=== PATIENT | female | born 1980 | race Caucasian/White ===

== ENCOUNTER 2020-06-25 12:17 | Inpatient (IN) ==
[2020-06-25] MEDS ORDERED: ALBUT/IPRATROP 3MG/0.5MG NEB 3 ML VIAL NEB STA (13:03)
[2020-06-25] MEDS ORDERED: methylPREDNISolone 125 MG/2 ML VIAL IV STA (13:03)
[2020-06-25 13:29] LABS: Basophils # (auto) 0.03 K/uL (0-0.2); Basophils % (auto) 0.5 %; Eosinophils # (auto) 0.66 K/uL (0-0.5); Eosinophils % (auto) 10.4 %; Hematocrit (blood only) 42.3 % (37-47); Hemoglobin 14.3 g/dL (12.0-16.0); Immature Granulocytes # (auto) 0.01 K/uL (0.00-0.02); Immature Granulocytes % (auto) 0.2 %; Lymphocytes # (auto) 1.94 K/uL (1.2-3.4); Lymphocytes % (auto) 30.6 %; Mean Corpuscular Hemoglobin 29.4 pg (25-34); Mean Corpuscular Hgb Conc 33.8 g/dL (32-36); Mean Platelet Volume 10.3 fL (7.4-10.4); Monocytes # (auto) 0.52 K/uL (0.11-0.59); Monocytes % (auto) 8.2 %; Neutrophils # (auto) 3.19 K/uL (1.4-6.5); Neutrophils % (auto) 50.1 %; Platelet Count 356 K/uL (130-400); RDW Coefficient of Variation 13.9 % (11.5-14.5); Red Blood Count 4.86 M/uL (4.2-5.4); White Blood Count 6.35 K/uL (4.8-10.8)
[2020-06-25 13:40] LABS: D Dimer < 190 ug/L FEU (0-500)
[2020-06-25 13:45] LABS: Albumin Level 4.2 gm/dl (3.4-5.0); BUN Creatinine Ratio 10.5 (10-20); Calcium 9.8 mg/dl (8.5-10.1); Creatinine Clr Calc Pharmacy 62.4 ml/min; Est GFR (African American) 97.3; Est GFR (Non-African American) 83.9; Potassium 3.9 mmol/L (3.5-5.1)
[2020-06-25 13:48] LABS: Albumin Globulin Ratio 0.9 (0.9-2); Bilirubin,Total 0.5 mg/dl (0.2-1); Globulin 4.5 gm/dl (2.5-4.0); Total Protein 8.7 gm/dl (6.4-8.2)
[2020-06-25] MEDS ORDERED: ALBUTEROL HFA 8 GM INHALER INH ONE (14:26)
--- NOTE | 2020-06-25 14:28 | XRay Report ---
XR chest 1V portable HISTORY: dyspnea COMPARISON: None. FINDINGS: No focal lung consolidations to suggest pneumonia. The heart is normal in size. No pleural effusions. No pneumothorax. Mild S-shaped scoliosis of the thoracolumbar spine. IMPRESSION: No acute process. ACT 112: Negative or not required by law. Electronically signed by: Jimbo Nash M.D. 06/25/2020 2:27 PM
--- NOTE | 2020-06-25 15:38 | Emergency Department Note ---
History of Present Illness General Chief complaint: Asthma Stated complaint: ASTHMA ATTACK Time Seen by Provider: 06/25/20 12:24 Source: patient and RN notes reviewed Mode of arrival: ambulatory Limitations: no limitations History of Present Illness Provider complaint: Asthma exacerbation This patient is a 40-year-old female who presents to the emergency department with complaints of shortness of breath that has been increasing over the last 24 hours. Patient states she primarily resides in [place] but has been here for about 1 week staying at her childhood home. She has misplaced her Symbicort inhaler and has been using her albuterol quite frequently. Patient states she had a terrible night last night of wheezing or coughing and could not get comfortable. She began to feel tingling in her feet after "several showers" to open up her lungs. Patient states she does have a history of smoking but has not smoked in several years. She denies any significant covert exposures and states she essentially has been staying to herself. Home Medications Home Medications Medication Instructions Recorded Confirmed Type albuterol 90 mcg INHALATION DAILY 06/25/20 06/25/20 History budesonide-formoterol [Symbicort] 2 inh INHALATION BID #10.2 g 06/25/20 Rx duloxetine [Cymbalta] 60 mg PO DAILY 06/25/20 06/25/20 History fexofenadine-pseudoephedrine 1 tab PO DAILY PRN 06/25/20 06/25/20 History [Claudette-D 24 Hour] montelukast 10 mg PO DAILY 06/25/20 06/25/20 History prednisone See Rx Instructions .ROUTE 06/25/20 Rx .COMPLEX #31 tab Allergies Allergy/AdvReac Type Severity Reaction Status Date / Time Penicillins Allergy Unknown Unverified 06/25/20 13:50 Sulfa (Sulfonamide Allergy Unknown Unverified 06/25/20 13:50 Antibiotics) Past Med/Surg History Medical History Asthma History of smoking Social History Smoking Status: Former smoker Tobacco Type: Cigarettes Preferred Language: Tuvaluan Feels Safe at Home: Yes Review of Systems See HPI for pertinent positives & negatives. and A total of 10 systems reviewed and were otherwise negative Physical Exam Vital Signs Vital Signs - 24 hr 06/25/20 12:18 06/25/20 13:04 06/25/20 13:14 Temperature 36.6 C Temperature Source Oral Oral Pulse Rate 76 85 Pulse Rate [Apical] Pulse Rate from SpO2 Sensor Pulse Rhythm Regular Pulse Strength Normal Respiratory Rate 20 21 Respiratory Effort / Characteristics Non-Labored Spontaneous Respiratory Depth Normal Respiratory Pattern Regular Blood Pressure 113/74 Blood Pressure Mean 87 Blood Pressure Position Sitting Pulse Oximetry 91 Oxygen Delivery Method Room Air Room Air Oxygen Flow Rate Sepsis Recent Fever Within 48 Hours No Sepsis New/Unexplained Change in Mental Status N/A Sepsis Action Taken by Nursing No Action Required 06/25/20 13:19 06/25/20 13:20 06/25/20 13:30 Temperature Temperature Source Pulse Rate 81 79 80 Pulse Rate [Apical] Pulse Rate from SpO2 Sensor 81 80 84 Pulse Rhythm Pulse Strength Respiratory Rate 17 21 22 Respiratory Effort / Characteristics Respiratory Depth Respiratory Pattern Blood Pressure 109/84 111/83 Blood Pressure Mean 101 90 Blood Pressure Position Pulse Oximetry 92 94 94 Oxygen Delivery Method Oxygen Flow Rate Sepsis Recent Fever Within 48 Hours Sepsis New/Unexplained Change in Mental Status Sepsis Action Taken by Nursing 06/25/20 13:31 06/25/20 13:40 06/25/20 13:50 Temperature Temperature Source Pulse Rate 77 83 93 H Pulse Rate [Apical] 75 Pulse Rate from SpO2 Sensor 72 82 92 H Pulse Rhythm Pulse Strength Respiratory Rate 16 18 Respiratory Effort / Characteristics Spontaneous Short of Breath Respiratory Depth Respiratory Pattern Blood Pressure Blood Pressure Mean Blood Pressure Position Pulse Oximetry 97 99 100 Oxygen Delivery Method Room Air Oxygen Flow Rate Sepsis Recent Fever Within 48 Hours Sepsis New/Unexplained Change in Mental Status Sepsis Action Taken by Nursing 06/25/20 14:00 06/25/20 14:01 06/25/20 14:10 Temperature Temperature Source Pulse Rate 85 97 H 102 H Pulse Rate [Apical] Pulse Rate from SpO2 Sensor 92 H 96 H Pulse Rhythm Pulse Strength Respiratory Rate 22 23 Respiratory Effort / Characteristics Respiratory Depth Respiratory Pattern Blood Pressure 111/82 Blood Pressure Mean 86 Blood Pressure Position Pulse Oximetry 100 100 Oxygen Delivery Method Oxygen Flow Rate Sepsis Recent Fever Within 48 Hours Sepsis New/Unexplained Change in Mental Status Sepsis Action Taken by Nursing 06/25/20 15:00 06/25/20 15:10 06/25/20 15:14 Temperature Temperature Source Pulse Rate 108 H 120 H Pulse Rate [Apical] Pulse Rate from SpO2 Sensor 117 H Pulse Rhythm Pulse Strength Respiratory Rate 23 24 Respiratory Effort / Characteristics Respiratory Depth Respiratory Pattern Blood Pressure 130/80 Blood Pressure Mean 98 Blood Pressure Position Pulse Oximetry 89 L 87 L Oxygen Delivery Method Room Air Oxygen Flow Rate Sepsis Recent Fever Within 48 Hours Sepsis New/Unexplained Change in Mental Status Sepsis Action Taken by Nursing 06/25/20 15:18 Temperature Temperature Source Pulse Rate Pulse Rate [Apical] Pulse Rate from SpO2 Sensor Pulse Rhythm Pulse Strength Respiratory Rate Respiratory Effort / Characteristics Respiratory Depth Respiratory Pattern Blood Pressure Blood Pressure Mean Blood Pressure Position Pulse Oximetry 90 Oxygen Delivery Method Nasal Cannula Oxygen Flow Rate 3 Sepsis Recent Fever Within 48 Hours Sepsis New/Unexplained Change in Mental Status Sepsis Action Taken by Nursing Vital signs reviewed. General: Well-appearing 40 yo female, no significant distress. HEENT: No scleral icterus, PERRLA, neck supple. Atraumatic. Cardiovascular: Regular rate and rhythm, no extra sounds. Pulmonary: Wheezing throughout the lung sellers bilaterally, slightly increased work of breathing but oxygenating on room air. Abdomen: Soft, nontender, nondistended, positive bowel sounds. Musculoskeletal: Atraumatic, no peripheral edema. Neurologic: Patient awake alert and oriented x 3 Skin: Warm, dry, no rash Course Administered Medications Discontinued Medications Albuterol (Albut/Ipratrop 3mg/0.5mg Neb 3 Ml Vial) 12 ml NEB ONE STA Stop: 06/25/20 13:04 Last Admin: 06/25/20 13:27 Dose: 12 ml Documented by: [id number] Albuterol (Albuterol Hfa 8 Gm Inhaler) 2 puffs INH NOW ONE Stop: 06/25/20 14:27 Last Admin: 06/25/20 15:19 Dose: Not Given Documented by: [id number] Methylprednisolone (Methylprednisolone 125 Mg/2 Ml Vial) 60 mg IV NOW STA Stop: 06/25/20 13:04 Last Admin: 06/25/20 13:17 Dose: 60 mg Documented by: [id number] Medical Decision Making Differential Diagnosis Differential diagnosis: Etiologies such as infections, reactive airway disease, COPD, pneumonia, pleural effusion, pulmonary edema, ARDS, pneumothorax, CHF, cardiac ischemia, cardiac t amponade, dysrhythmia, anemia, pulmonary embolism, musculoskeletal, gastrointestinal process, as well as others were entertained. Medical Records Attestation: I reviewed the patient's medical records. Home Medications Current Medication List: was personally reviewed by me Laboratory Data Attestation: I reviewed the patient's lab results. Result diagrams: 06/25/20 13:15 06/25/20 13:15 Lab Results 06/25/20 06/25/20 06/25/20 Range/Units 13:15 13:15 13:15 WBC 6.35 (4.8-10.8) K/uL RBC 4.86 (4.2-5.4) M/uL Hgb 14.3 (12.0-16.0) g/dL Hct 42.3 (37-47) % MCV 87.0 (80-100) fL MCH 29.4 (25-34) pg MCHC 33.8 (32-36) g/dL RDW Std Deviation 44.0 (36.4-46.3) fL RDW Coeff of Tomasz 13.9 (11.5-14.5) % Plt Count 356 (130-400) K/uL MPV 10.3 (7.4-10.4) fL Immature Gran % (Auto) 0.2 % Neut % (Auto) 50.1 % Lymph % (Auto) 30.6 % Hayes % (Auto) 8.2 % Eos % (Auto) 10.4 % Baso % (Auto) 0.5 % Neut # (Auto) 3.19 (1.4-6.5) K/uL Lymph # (Auto) 1.94 (1.2-3.4) K/uL Hayes # (Auto) 0.52 (0.11-0.59) K/uL Eos # (Auto) 0.66 H (0-0.5) K/uL Baso # (Auto) 0.03 (0-0.2) K/uL Immature Gran # (Auto) 0.01 (0.00-0.02) K/uL D-Dimer < 190 (0-500) ug/L FEU Sodium 138 (136-145) mmol/L Potassium 3.9 (3.5-5.1) mmol/L Chloride 104 (98-107) mmol/L Carbon Dioxide 25 (21-32) mmol/L Anion Gap 9.0 (3-11) BUN 9 (7-18) mg/dl Creatinine 0.87 (0.6-1.2) mg/dl Est Cr Clr Drug Dosing 62.4 ml/min Est GFR ( Amer) 97.3 Est GFR (Non-Af Amer) 83.9 BUN/Creatinine Ratio 10.5 (10-20) Glucose 84 (70-99) mg/dl Calcium 9.8 (8.5-10.1) mg/dl Total Bilirubin 0.5 (0.2-1) mg/dl AST 20 (15-37) U/L ALT 21 (12-78) U/L Alkaline Phosphatase 84 (45-117) U/L Total Protein 8.7 H (6.4-8.2) gm/dl Albumin 4.2 (3.4-5.0) gm/dl Globulin 4.5 H (2.5-4.0) gm/dl Albumin/Globulin Ratio 0.9 (0.9-2) Imaging Data Attestation: I personally reviewed and interpreted this imaging study as follows: Radiologist's Impression: XR chest 1V portable HISTORY: dyspnea COMPARISON: None. FINDINGS: No focal lung consolidations to suggest pneumonia. The heart is normal in size. No pleural effusions. No pneumothorax. Mild S-shaped scoliosis of the thoracolumbar spine. IMPRESSION: No acute process. ACT 112: Negative or not required by law. Electronically signed by: Jimbo Nash M.D. 06/25/2020 2:27 PM Dictated: 06/25/20 1425 Transcribed: 06/25/20 1425 Blood Pressure Blood Pressure Findings: Normal blood pressure Blood Pressure Disposition: did not require urgent referral MDM Narrative This patient was evaluated and appeared to be in no significant distress. Patient's lung sounds are concerning for wheezing bilaterally. She does have a slightly increased work of breathing. Chest x-ray was performed and is negative for pulmonary infiltrate. Laboratory work reveals a negative d-dimer. Patient was given 60 mg of IV Solu-Medrol and an hour-long DuoNeb treatment. She was observed in the emergency department and reevaluated several times. Her work of breathing seemed to remain stable however wheezing was significant. Patient had likely a secondary hypoxia to 86% on room air after the nebulizer treatment. She was placed on nasal cannula oxygen. Given her continued increased work of breathing and hypoxia, the hospitalist will evaluate the patient for further management. She will likely require more aggressive steroid and nebulizer adm inistration. Patient is aware of the plan and agrees. Impression & Plan Asthma with acute exacerbation Discharge Plan Visit Data Chief Complaint: Asthma Stated Complaint: ASTHMA ATTACK ED Provider: Alla Auguste Discharge Problem: Asthma with acute exacerbation Patient Disposition: Home - Self-Care Condition: Good Discharge Instructions Urmila/Other Patient Handouts: Acute Severe Asthma Activity Restrictions/Additional Instructions: Diagnosis: Acute asthma exacerbation Prednisone 40 mg daily for 4 days, 30 mg daily for 3 days, 20 mg daily for 2 days, 10 mg daily for 2 days. Start tomorrow. Albuterol 2 puffs every 4 hours as needed for wheezing or cough. Continue your medications as prescribed. Follow-up with your physician upon return home. Return to the emergency department immediately for worsening of symptoms or any medical concerns. Forms Stand Alone Forms: [facility], [facility] Emergency Department, Important Visit Information Prescriptions Prescriptions: New budesonide-formoterol [Symbicort] 160-4.5 mcg/actuation HFA aerosol inhaler 2 inh inhalation BID Qty: 10.2 RF: 0 prednisone 10 mg tablet See Rx Instructions .ROUTE .COMPLEX Qty: 31 RF: 0 No Action montelukast 10 mg Tablet 10 mg PO DAILY RF: 0 albuterol 90 mcg/actuation Aerosol 90 mcg INHALATION DAILY RF: 0 duloxetine [Cymbalta] 60 mg Capsule,Delayed Release(Dr/Ec) 60 mg PO DAILY RF: 0 Claudette-D 24 Hour 180-240 mg Tablet Extended Release 24 Hr 1 tab PO DAILY PRN (Reason: Allergy Symptoms) RF: 0 Referrals Referrals: PCP,NO [Primary Care Provider] -
--- NOTE | 2020-06-25 16:32 | History & Physical Report ---
Date of Service June 25, 2020 Assessment & Plan (1) Asthma with acute exacerbation: Secondary to not using her Symbicort Duonebs QID + PRN Switch Symbicort to Breo Ellipta per hospital formulary Solu-Medrol 40mg IV BID Recommend discussing with her hosting engineer a rescue prednisone pack to avoid ER visits in the future. 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 Consider colchicine to reduce recurrent prednisone dosing. (4) Seasonal allergies: Claudette 180 mg p.o. daily. Montelukast 10 mg p.o. daily. No significant sinus disease to warrant pseudoephedrine and recommend she starts weaning off this. Admission and Anticipated Discharge Date Admission Date: June 25, 2020 History of Present Illness Chief Complaint: Shortness of breath Primary Care Provider: NO PCP Yolanda Granado is a 40-year-old female with past medical history of asthma who presents to the ER with shortness of breath. She notes progressive worsening shortness of breath becoming more labored over the past week. Especially worse over the last 2 days. Using her albuterol regularly and initially was helping but today was not making much difference. Associated chest tightness and nonproductive cough. No fevers, chills, abdominal pain, loss of taste or smell. No known COVID-19 exposure. She splits her time between [place], [place] where she has her outpatient care and [place], [place]. Unfortunately she left her Symbicort inhaler down in [place] therefore has not been taking this for the past 2 weeks. She reports poor compliance with her inhalers generally. In addition she is spent a lot of time outside and feels her allergies may have brought on this asthma exacerbation. This is her second exacerbation this year, last time in November was secondary to a viral illness. Usually she does not require hospitalization but comes to the ER for nebulizers and IV steroids and is able to be discharged. In the ER she was given an hour-long nebulizer, Solu-Medrol 60 mg IV with significant improvement in her chest tightness. Allergies Allergy/AdvReac Type Severity Reaction Status Date / Time Penicillins Allergy Unknown Unverified 06/25/20 13:50 Sulfa (Sulfonamide Allergy Unknown Unverified 06/25/20 13:50 Antibiotics) Home Medications Home Medications Medication Instructions Recorded Confirmed Type albuterol 90 mcg INHALATION DAILY 06/25/20 06/25/20 History budesonide-formoterol [Symbicort] 2 inh INHALATION BID #10.2 g 06/25/20 Rx duloxetine [Cymbalta] 60 mg PO DAILY 06/25/20 06/25/20 History fexofenadine-pseudoephedrine 1 tab PO DAILY PRN 06/25/20 06/25/20 History [Claudette-D 24 Hour] montelukast 10 mg PO DAILY 06/25/20 06/25/20 History prednisone See Rx Instructions .ROUTE 06/25/20 Rx .COMPLEX #31 tab Past Med/Surg History Medical History Asthma Behcet recurrent disease History of smoking Seasonal allergies Social History Smoking Status: Former smoker Tobacco Type: Cigarettes Second Hand Exposure: No; Do You Dip or Chew Tobacco: No; Tobacco Cessation Education Requested by Patient: No Hx Alcohol Use: Yes Alcohol type: wine Preferred Language: Estonian Communication Ability: Effective Electroless Plater Required: No Beliefs That Will Affect Care: None Current Living Situation: Significant Other Other Information That Helps Us Care for You: No Feels Safe at Home: Yes Safety Concerns: Feels Safe At This Time Review of Systems Review of Systems: All systems reviewed & are unremarkable except as noted in HPI & below 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 Physical Exam Constitutional: WD/WN, vitals as above Eyes: + anicteric sclerae; normal pupil size ENMT: external ear and nose normal, oropharynx normal Neck: trachea midline, no thyromegaly Respiratory: normal respiratory effort, + cough (Nonproductive) and able to speak in complete sentences; no respiratory distress, no labored breathing, no retractions and does not use accessory muscles Auscultation: + breath sounds absent (Bibasilar expiratory), + diminished lung sounds (Expiratory throughout) and + wheezes (Inspiratory) Cardiovascular: Rate/Rhythm: regular rhythm and + tachycardic Heart Sounds: no murmur Extremities: normal capillary refill; no pedal edema Gastrointestinal (Abdomen): normal bowel sounds, soft, nontender, no hepatosplenomegaly Musculoskeletal: no cyanosis or clubbing, extremities motor strength 5/5 Skin: no rashes, warm and dry Neurologic: moves all extremities and awake; not confused Psychiatric: A+Ox3, euthymic affect Lymphatic: no cervical or axillary lymphadenopathy Results & Data Results & Data ([facility]) Vital Signs (Past 12 Hours) Vital Signs Temp Pulse Pulse Resp BP Pulse Ox 06/25/20 15:25 93 06/25/20 15:18 90 06/25/20 15:14 87 L 06/25/20 15:10 120 H 24 89 L 06/25/20 15:00 108 H 23 130/80 06/25/20 14:10 102 H 06/25/20 14:01 97 H 23 100 06/25/20 14:00 85 22 111/82 100 06/25/20 13:50 93 H 18 100 06/25/20 13:40 83 99 06/25/20 13:31 77 75 16 97 06/25/20 13:30 80 22 111/83 94 06/25/20 13:20 79 21 94 06/25/20 13:19 81 17 109/84 92 06/25/20 13:14 85 21 06/25/20 12:18 36.6 C 76 20 113/74 91 Diagnostic Findings XR chest 1V portable IMPRESSION: No acute process. ECG Indication: tachycardia Rate (beats per minute): 93 Rhythm: sinus tachycardia and sinus with SA Findings: no acute ischemic change Comparison ECG Date: no prior available Code Status & VTE Plan Code Status Full VTE Prophylaxis Plan VTE Prophylaxis will be ordered: No Reason for no VTE drug order: Treatment not indicated Reason for no VTE mechanical prophylaxis: Treatment not indicated PG Care Time/CCT Total # of Minutes Spent Total Time Spent with Patient: Total time spent is greater than 50% in coordination of care (as documented) at patient's floor/unit and/or counseling patient: Coding Level of Care Code 89824 Initial Inpt Care Lvl 2 Diagnoses Asthma with acute exacerbation J45.901 Hypoxia R09.02 Behcet recurrent disease M35.2 Seasonal allergies J30.2
[2020-06-25] MEDS ORDERED: ONDANSETRON INJ 2 MG/ML 2 ML VIAL IV PRN (18:08)
[2020-06-25] MEDS ORDERED: POLYETHYLENE (MIRALAX) 17 GM PACK PO PRN (18:08)
[2020-06-25] MEDS ORDERED: ACETAMINOPHEN 325 MG TAB PO PRN (18:08)
[2020-06-25] MEDS: ALBUT/IPRATROP 3MG/0.5MG NEB 3 ML VIAL NEB SCH (19:48)
[2020-06-26] MEDS: ALBUT/IPRATROP 3MG/0.5MG NEB 3 ML VIAL NEB SCH ×5 (07:31→23:21)
--- NOTE | 2020-06-26 07:40 | Hospitalist Progress Note ---
Date of Service June 26, 2020 Assessment & Plan (1) Hypoxia: Patient's hypoxia is persistent and profound seemingly out of proportion. Her chest x-ray looks more like hyperinflation consistent with air trapping from COPD. She does have some smoking and vaping history. She has no knowledge of other family emergency with premature COPD and does not recall ever having an alpha-1 antitrypsin test (2) Asthma with acute exacerbation: Patient feels this is most likely secondary to not using her Symbicort she forgot it when she traveled from [place] to [place]. Duonebs QID + PRN Switch Symbicort to Breo Ellipta per hospital formulary Solu-Medrol 40mg IV BID Recommend discussing with her underwriting analyst a rescue prednisone pack to avoid ER visits in the future. 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 Consider colchicine to reduce recurrent prednisone dosing. (4) Seasonal allergies: Claudette 180 mg p.o. daily. Montelukast 10 mg p.o. daily. Admission and Anticipated Discharge Date Admission Date: June 25, 2020 Subjective Patient is very anxious she does not feel short of breath despite her persistent hypoxia. She says she was hypoxic once before when she was ill but they thought it was just from an acute illness he has a nonproductive cough she is in no chest pain or pressure Review of Systems Review of Systems: Mild distress and fatigue no headache, blurry or double vision no speech or swallowing issues no chest pain, pressure or palpitations no shortness of breath, intermittent nonproductive cough and sporadic wheezes no abdominal pain, nausea or vomiting, diarrhea or constipation no dysuria, hematuria or frequency no focal joint pain or swelling no back pain, CVA tenderness or radicular pain no bruising, bleeding or rashes no focal signs of weakness or numbness or altered sensation no complaints or anxiety or depression. Physical Exam Physical Exam: The patient appeared thin and petite in no acute distress Vital signs as documented. Head exam is normocephalic atraumatic no scleral icterus Neck is without JVD, thyromegaly, or carotid bruits. Lungs are clear to auscultation, poor air movement throughout occasional scant wheezes at the upper lobes Cardiac exam, Rhythm is regular.. No murmurs, rubs or gallops. Abdominal exam reveals normal bowel sounds, soft non tender, no masses Extremities are nonedematous and both pedal pulses are normal. Neurologic exam is alert and oriented, no focal loss of strength or sensation Skin is without bruises or rashes Psychologically is without concerns for anxiety or depression. Results & Data Results & Data ([facility]) Vital Signs (Past 12 Hours) Vital Signs Temp Pulse Pulse Resp BP Pulse Ox 06/26/20 07:31 59 L 16 97 06/26/20 07:18 72 93 06/26/20 07:14 88 L 06/26/20 07:05 97.7 F 75 20 112/61 92 06/25/20 23:00 97.3 F L 74 18 99/63 L 95 06/25/20 19:49 48 L 18 93 PG Care Time/CCT Total # of Minutes Spent Total Time Spent with Patient: Total time spent is greater than 50% in coordination of care (as documented) at patient's floor/unit and/or counseling patient: Coding Level of Care Code 22881 Subseq Hosp Care Lvl 3 Diagnoses Hypoxia R09.02 Asthma with acute exacerbation J45.901 Behcet recurrent disease M35.2 Seasonal allergies J30.2
[2020-06-26] MEDS: FLUTICASONE/VILANTEROL 200/25MCG 14 PUFFS/INHALER INH SCH (08:50)
[2020-06-26] MEDS: methylPREDNISolone 40 MG in SYRINGE 0 ML IV SCH ×2 (08:50→22:03)
[2020-06-26] MEDS: MONTELUKAST SODIUM 10 MG TABLET PO SCH (08:51)
[2020-06-26] MEDS: DULOXETINE HCL 60 MG CAP PO SCH (08:51)
[2020-06-26] MEDS ORDERED: PNEUMOCOCCAL ADMINISTRATION CHARGE ONE (09:00)
[2020-06-26] MEDS ORDERED: PNEUMOCOCCAL POLYSACCHARIDES 25 MCG/0.5 ML VIAL/SYR IM ONE (09:00)
[2020-06-26] MEDS: guaiFENesin 600 MG TABCR PO SCH ×2 (09:03→22:01)
[2020-06-26] MEDS: FEXOFENADINE HCL 180 MG TAB PO SCH (09:03)
--- NOTE | 2020-06-26 09:20 | Electrocardiogram Report ---
Test Reason : Blood Pressure : / mmHG Vent. Rate : 093 BPM Atrial Rate : 093 BPM P-R Int : 120 ms QRS Dur : 084 ms QT Int : 378 ms P-R-T Axes : 081 082 012 degrees QTc Int : 469 ms Left atrial rhythm with sinus arrhythmia Otherwise Normal ECG No previous ECGs available Confirmed by Otilio Cordero ([id number]) on 06/26/2020 9:19:56 AM Referred By: REFERRED SELF Confirmed By:Otilio Cordero
--- NOTE | 2020-06-26 10:05 | CT Scan Report ---
CT chest wo con CT DOSE: 257.64 mGycm CLINICAL HISTORY: 40 years-old Female with eval for hypoxic respiratory failure. Acute cough with sh ortness of breath TECHNIQUE: Multiaxial CT images of the chest were performed without contrast. A dose lowering techni que was utilized adhering to the principles of ALARA. COMPARISON: Chest radiograph 06/25/2020 FINDINGS: No large thyroid nodule. 9 mm precarinal lymph node, likely reactive. No pathologically enlarged lymp h nodes. Heart is normal in size. No pericardial effusion. No thoracic aortic aneurysm. No pneumothor ax or pleural effusion. Larger hyperinflated with diaphragmatic flattening. Mild to moderate bilatera l mucus plugging. Mild biapical pleural-parenchymal scarring. Mild patchy bibasilar and midlung predo minant groundglass opacities. No overt pulmonary edema, suspicious pulmonary nodule or mass. There is no acute process of the imaged upper abdomen. Soft tissues are unremarkable. Bones appear in tact. Scoliosis of the upper to mid thoracic spine. No acute fracture or suspicious bone lesion. IMPRESSION: 1. Bilateral multifocal mucus plugging with patchy intermixed groundglass densities suggestive of pro bable atelectasis. An atypical pneumonitis could appear similarly. 2. No adenopathy, pleural effusion or lobar airspace consolidation. 3. Thoracic levoscoliosis. ACT 112: Positive. There are findings on this exam that require communication between the performing entity and the patient following Patient Test Result Information Act ([place] Act 112) guidelines. Electronically signed by: Tyler Swann M.D. 06/26/2020 10:04 AM
[2020-06-26] MEDS ORDERED: AZITHROMYCIN 250 MG TAB PO ONE (11:52)
[2020-06-26 14:09] LABS: Adenovirus PCR Not Detected (NotDetected); Bordetella parapertussis PCR Not Detected (NotDetected); Bordetella pertussis PCR Not Detected (NotDetected); Chlamydia pneumoniae PCR Not Detected (NotDetected); Coronavirus 229E PCR Not Detected (NotDetected); Coronavirus CoV-2 (COVID19)PCR Not Detected (NotDetected); Coronavirus HKU1 PCR Not Detected (NotDetected); Coronavirus NL63 PCR Not Detected (NotDetected); Coronavirus OC43PCR Not Detected (NotDetected); Human Metapneumovirus PCR Not Detected (NotDetected); Influenza A PCR Not Detected (NotDetected); Influenza B PCR Not Detected (NotDetected); Mycoplasma pneumoniae PCR Not Detected (NotDetected); Parainfluenza Virus 1 PCR Not Detected (NotDetected); Parainfluenza Virus 2 PCR Not Detected (NotDetected); Parainfluenza Virus 3 PCR Not Detected (NotDetected); Parainfluenza Virus 4 PCR Not Detected (NotDetected); Respiratory Syncytial VirusPCR Not Detected (NotDetected); Rhinovirus/Enterovirus PCR Not Detected (NotDetected)
[2020-06-26] MEDS ORDERED: LORazepam 0.5 MG TAB PO PRN (23:15)
[2020-06-27] MEDS ORDERED: COUGH DROP (SUGAR FREE) LOZ 24 LOZ/1 BOX BUCCAL ONE (04:55)
[2020-06-27] MEDS: ALBUT/IPRATROP 3MG/0.5MG NEB 3 ML VIAL NEB SCH ×3 (07:15→15:06)
--- NOTE | 2020-06-27 08:27 | Discharge Summary ---
Date of Service June 27, 2020 Admission HPI Per Admitting Provider Yolanda Granado is a 40-year-old female with past medical history of asthma who presents to the ER with shortness of breath. She notes progressive worsening shortness of breath becoming more labored over the past week. Especially worse over the last 2 days. Using her albuterol regularly and initially was helping but today was not making much difference. Associated chest tightness and nonproductive cough. No fevers, chills, abdominal pain, loss of taste or smell. No known COVID-19 exposure. She splits her time between [place], [place] where she has her outpatient care and [place], [place]. Unfortunately she left her Symbicort inhaler down in [place] therefore has not been taking this for the past 2 weeks. She reports poor compliance with her inhalers generally. In addition she is spent a lot of time outside and feels her allergies may have brought on this asthma exacerbation. This is her second exacerbation this year, last time in November was secondary to a viral illness. Usually she does not require hospitalization but comes to the ER for nebulizers and IV steroids and is able to be discharged. In the ER she was given an hour-long nebulizer, Solu-Medrol 60 mg IV with significant improvement in her chest tightness. Principal Diagnosis acute hypoxic respiratory failure bronchiolitis asthma Discharge Exam The patient appeared with minimal respiratory distress Vital signs as documented. Lungs are clear with overall poor air movement no wheezes Cardiac exam, Rhythm is regular. She becomes tachycardic when she is hypoxic,. No murmurs, rubs or gallops. Abdominal exam reveals normal bowel sounds, soft non tender, no masses Extremities are nonedematous and both pedal pulses are normal. Neurologic exam is alert and oriented, no focal loss of strength or sensation Skin is without bruises or rashes Psychologically is with concerns for anxiety . Discharge Data Allergies Allergy/AdvReac Type Severity Reaction Status Date / Time Penicillins Allergy Unknown Unverified 06/25/20 13:50 Sulfa (Sulfonamide Allergy Unknown Unverified 06/25/20 13:50 Antibiotics) Ordered Studies 06/26/20 08:01 CT chest wo con Routine Hospital Course (1) Hypoxia: Patient's hypoxia is persistent and profound for her age. Echocardiogram did not reveal any valvular heart disease or concerns for septal defects. Her chest x-ray looks more like hyperinflation consistent with air trapping from COPD. She does have some smoking and vaping history. She has no knowledge of other family members with premature COPD and does not recall ever having an alpha-1 antitrypsin test. Given the fact that she is trying to contain her cost [id number] we did recommend other additional testing be performed in her primary care office including alpha-1 antitrypsin testing IgE levels. Her initial d-dimer was normal so her CT scan was done without contrast (2) Asthma with acute exacerbation: Patient feels this is most likely secondary to not using her Symbicort she forgot it when she traveled from [place] to [place]. 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 Consider colchicine to reduce recurrent prednisone dosing. (4) Seasonal allergies: Claudette 180 mg p.o. daily. Montelukast 10 mg p.o. daily. (5) Underweight: Patient is underweight with a BMI of 17 Total Time Total Time Spent Total Time Spent (In Minutes): It required greater than 30 minutes to prepare this patient for discharge Discharge Plan Discharge Items Patient Disposition: Home - Self-Care Reason For Visit: ASTHMA EXACERBATION Discharge Diagnosis: acute hypoxic respiratory failure bronchiolitis Condition on Discharge: Good Activity: Per Instructions section Activity Comment: no intentional exercise until you see follow up pcp Non-emergency contact: Primary Care Provider Call non-emergency contact if: your symptoms worsen Follow-up/Referrals: Jasen Koehler [Other] - 07/10/20 9:30 am (Pulmonary Function Test) Richy Koehler MD [Physician] - 07/14/20 2:00 pm PCP,NO [Primary Care Provider] - Diet: Regular Addtl Attending Provider Instructions: you have evidence of a low blood oxygen level that is yet to be fully explained, it is important that you limit exertion and rest as much as able. Please see a family doctor in one week or less. wear your oxygen at all times' please to not smoke or Vape please complete your antibiotics and steroid tapering dose Pending Studies at Discharge: No Stand-Alone Forms: My [employer], Smoking Cessation Medications and DC Order Prescriptions: New budesonide-formoterol [Symbicort] 160-4.5 mcg/actuation HFA aerosol inhaler 2 inh inhalation BID Qty: 10.2 RF: 0 prednisone 10 mg tablet See Rx Instructions .ROUTE .COMPLEX Qty: 31 RF: 0 guaifenesin [Mucinex] 600 mg Tablet Extended Release 12hr 1,200 mg PO Q12 Qty: 20 RF: 0 azithromycin 250 mg tablet 250 mg PO DAILY 4 Days Qty: 4 RF: 0 (DME) Oxygen Home Liters Per Minute See Rx Instructions .ROUTE .MEDSUPPLY Qty: 1 RF: 0 albuterol sulfate 90 mcg/actuation HFA aerosol inhaler 1 inh inhalation Q6H PRN (Reason: shortness of breath or wheezing) Qty: 6.7 RF: 0 Continued montelukast 10 mg Tablet 10 mg PO DAILY RF: 0 duloxetine [Cymbalta] 60 mg Capsule,Delayed Release(Dr/Ec) 60 mg PO DAILY RF: 0 Claudette-D 24 Hour 180-240 mg Tablet Extended Release 24 Hr 1 tab PO DAILY PRN (Reason: Allergy Symptoms) RF: 0 Discontinued albuterol 90 mcg/actuation Aerosol 90 mcg INHALATION DAILY RF: 0 Discharge Orders: Discharge Order (Routine); Ordered 06/27/20 Ordered By: Ehsan Kearns/Other Patient Handouts: Discharge Instructions for Asthma, Asthma Trigger Checklist Admission Data Admit Date/Time: 06/25/20 16:51 Attending Provider: Ehsan Rodriguez Admit Provider: Ponce Tavera Primary Care Provider: PCP,NO Other Interventions: Discharge Summary Assessment (RN) Last Done: 06/27/20 14:28 Coding Level of Care Code D/C Day Management >30 mins Diagnoses Hypoxia R09.02 Asthma with acute exacerbation J45.901 Behcet recurrent disease M35.2 Seasonal allergies J30.2 Underweight R63.6
[2020-06-27] MEDS: methylPREDNISolone 40 MG in SYRINGE 0 ML IV SCH (09:21)
[2020-06-27] MEDS: FLUTICASONE/VILANTEROL 200/25MCG 14 PUFFS/INHALER INH SCH (09:21)
[2020-06-27] MEDS: MONTELUKAST SODIUM 10 MG TABLET PO SCH (09:22)
[2020-06-27] MEDS: DULOXETINE HCL 60 MG CAP PO SCH (09:22)
[2020-06-27] MEDS: FEXOFENADINE HCL 180 MG TAB PO SCH (09:22)
[2020-06-27] MEDS: guaiFENesin 600 MG TABCR PO SCH (09:22)
--- NOTE | 2020-06-27 10:53 | XCELERA ---
[id number]
== END 2020-06-27 17:01 | disposition home or self-care (01) | DRG 202 ==
LOC: ED 12:17 → 3E 16:51 → SUATTDRO 16:51 → 3E 17:47